=== PATIENT | male | born 1995 | race African-American/Black ===

== ENCOUNTER 2016-05-03 23:07 | Emergency (ER) | payer OTHER ==
--- NOTE | 2016-05-04 00:47 | ED ---
Upper Extremity Pain - HPI Summary HPI Summary: Pt here w/ Rt index finger laceration prior to arrival. Was opening a box with a knife when he accidentally cut himself. Bled but has since stopped. Finger is sore but he is able to bend and extend. Denies numbness, weakness. Imms are UTD. Past h/o staph infection - no known h/o MRSA. - History of Current Complaint Chief Complaint: EDLacSutureRecheck Stated Complaint: RT INDEX FINGER LAC Time Seen by Provider: 05/04/16 00:24 Hx Obtained From: Patient - Allergies/Home Medications Allergies/Adverse Reactions: Allergies Allergy/AdvReac Type Severity Reaction Status Date / Time No Known Allergies Allergy Verified 05/03/16 23:21 PMH/Surg Hx/FS Hx/Imm Hx Previously Healthy: Yes Endocrine/Hematology History: Denies: Hx Anticoagulant Therapy, Hx Blood Disorders, Hx Unexplained Bleeding , Autoimmune Disease Infectious Disease History: No Infectious Disease History: Reports: History Other Infectious Disease - Staph on skin Denies: Traveled Outside the [place] in Last 30 Days - Family History Known Family History: Positive: Cardiac Disease, Diabetes - Social History Occupation: Student Lives: With Family - roommate Alcohol Use: Weekly - through Monday Substance Use Type: Reports: Marijuana - occasionally Smoking Status (MU): Current Every Day Smoker Review of Systems Positive: no symptoms reported Musculoskeletal: Other - see HPI Skin: Other - see HPI Negative: Weakness, Paresthesia, Numbness Psychological: Normal All Other Systems Reviewed And Are Negative: Yes Physical Exam Triage Information Reviewed: Yes Vital Signs On Initial Exam: Initial Vitals Temp Pulse Resp BP Pulse Ox 98.8 F 78 16 126/64 97 05/03/16 23:15 05/03/16 23:15 05/03/16 23:15 05/03/16 23:15 05/03/16 23:15 Vital Signs Reviewed: Yes Appearance: Positive: Well-Appearing, No Pain Distress, Well-Nourished Skin: Positive: Warm - linear laceration over Rt dorsal index finger, PIP joint Head/Face: Positive: Normal Head/Face Inspection Eyes: Positive: Normal, EOMI ENT: Positive: Hearing grossly normal, Pharynx normal - mucosa moist Respiratory/Lung Sounds: Positive: Breath Sounds Present Cardiovascular: Positive: Pulses are Symmetrical in both Upper and Lower Extremities Musculoskeletal: Positive: Normal, Strength/ROM Intact Neurological: Positive: Normal, Sensory/Motor Intact, Alert, Oriented to Person Place, Time, CN Intact II-III Psychiatric: Positive: Normal Procedures - Laceration/Wound Repair 1 Location: upper extremity - Rt index finger, dorsal PIP joint Description: Linear Length, Depth and Shape: 0.75cm x 2mm Betadine Prep?: No - hibaclens solution soak Laceration/Wound Explored: clean Closure: Skin Adhesive, SteriStrips Diagnostics - Vital Signs Vital Signs Temp Pulse Resp BP Pulse Ox 05/03/16 23:15 98.8 F 78 16 126/64 97 - Laboratory Lab Statement: Any lab studies that have been ordered have been reviewed, and results considered in the medical decision making process. Course/Dx - Course Course Of Treatment: No involvement of tendon, hemodynamically stable s/p hibaclens saline solution soak - approximated well w/ steristrips - splint placed - pt tolerated well - Diagnoses Provider Diagnoses: Laceration of right index finger Discharge - Discharge Plan Condition: Stable Disposition: HOME Patient Education Materials: Finger Laceration (ED), Skin Adhesive Care (ED), Steristrips (ED) Forms: *School Release Referrals: [facility] CONNIE Contreras [Medical Doctor] - Additional Instructions: Keep wound clean, dry and intact. Keep splint in place for 10-14 days to allow wound to heal For pain, rest, ice, elevate and you may take ibuprofen with food Follow-up with [facility] in 1 week for wound check *If you develop redness, swelling, streaking, purulent drainage, fever, chills, seek medical attention at school or return to ED
[2016-05-04 01:29] VITALS: BP 126/77
== END 2016-05-04 01:27 | disposition home or self-care (01) ==
LOC: ED 23:07
DX: S61.210A Laceration without foreign body of right index finger without damage to nail, initial encounter (principal); W26.0XXA Contact with knife, initial encounter; Y93.9 Activity, unspecified; Y92.9 Unspecified place or not applicable; F17.210 Nicotine dependence, cigarettes, uncomplicated
CPT/HCPCS: 99282